=== PATIENT | male | born 1995 | race Two or more races ===

== ENCOUNTER 2021-09-19 10:37 | Emergency (ER) | payer MEDICAID ==
[~2021-09-19] VITALS: Ht 180.3 cm; Wt 74.5 kg
[~2021-09-19 10:37] MED LIST: ATI0.5T PO; CEPH-357 PO; D-ME118S51 PO; ESOM40CA PO; LORA1TAB PO; PHEL PO
[2021-09-19 10:38] VITALS: BP 135/85
== END 2021-09-19 14:26 | disposition home or self-care (01) ==
LOC: ER 10:38
DX: F11.90 Opioid use, unspecified, uncomplicated (principal); Z87.19 Personal history of other diseases of the digestive system; F12.90 Cannabis use, unspecified, uncomplicated; F17.210 Nicotine dependence, cigarettes, uncomplicated; Z72.89 Other problems related to lifestyle; Z88.1 Allergy status to other antibiotic agents; Z79.2 Long term (current) use of antibiotics; Z79.899 Other long term (current) drug therapy
CPT/HCPCS: 99281